=== PATIENT | female | born 1995 | race Caucasian/White ===

== ENCOUNTER 2018-08-08 20:34 | Emergency (ER) | payer SELFPAY ==
[~2018-08-08] VITALS: Ht 165.1 cm; Wt 91.2 kg
[2018-08-08 22:04] LABS: *URINE HCG, QUAL NEGATIVE (NEGATIVE)
--- NOTE | 2018-08-08 22:55 | NUR ---
Patient discharged to home in stable conditon. Written and verbal after care instructions given. Patient verbalizes understanding of instructions.
[2018-08-08 23:21] VITALS: BP 114/74
== END 2018-08-08 22:50 | disposition home or self-care (01) ==
LOC: ER 20:34
DX: S00.03XA Contusion of scalp, initial encounter (principal); M54.6 Pain in thoracic spine; F17.200 Nicotine dependence, unspecified, uncomplicated; R07.89 Other chest pain; W01.0XXA Fall on same level from slipping, tripping and stumbling without subsequent striking against object, initial encounter; Y93.89 Activity, other specified; Y92.89 Other specified places as the place of occurrence of the external cause; Y99.8 Other external cause status
CPT/HCPCS: 70450; 71045; 84703; A4663